=== PATIENT | female | born 1980 ===

== ENCOUNTER 2024-12-17 08:47 | Inpatient (IN) | payer MEDICARE, OTHER ==
[~2024-12-17] VITALS: Ht 165.1 cm; Wt 175.0 kg
[2024-12-17] MEDS ORDERED: CELEXA40 M9 PO (15:15)
[2024-12-17] MEDS ORDERED: CLOBETASOL EMOL15 G2 TOP (15:18)
[2024-12-17] MEDS ORDERED: HYDHCL25 PO (15:20)
[2024-12-17] MEDS ORDERED: IBUP800 PO (15:22)
[2024-12-17] MEDS ORDERED: TRAZ50 PO (15:25)
[2024-12-17] MEDS ORDERED: Polyethylene Glycol 3350 17 gm PO PRN (15:35)
[2024-12-17] MEDS ORDERED: Aluminum Hydroxide 320MG/5ML 473 ML PO PRN (15:35)
[2024-12-17] MEDS ORDERED: Ondansetron 4 MG SoluTab MM PRN (15:35)
[2024-12-17] MEDS ORDERED: DiphenhydrAMINE HCl 50 MG/ML 1ML Vial IM PRN (15:40)
[2024-12-17] MEDS ORDERED: Haloperidol Lactate Inj. 5 MG/ML Injection IM PRN (15:40)
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
[2024-12-17 20:52] VITALS: BP 114/74
[2024-12-17] MEDS ORDERED: Clobetasol Prop 0.05% Cream 15 gm TOP SCH (21:00)
--- NOTE | 2024-12-18 04:09 | NUR ---
SHIFT SUMMARY PT LAYING IN BED, AWAKE AT START OF SHIFT. SHE IS PLEASANT AND COOPERATIVE WITH CARE. SUPERFICIAL WOUNDS TO HER FOREHEAD, BRIDGE OF NOSE AND BILATERAL UPPER CHEEKS WITH NO DRAINAGE. PT DENIES ANY CURRENT SI, HI, THOUGHTS OF SELF HARM OR AVTH. SHE REPORTS HER ANXIETY IS 2/10. AT TIMES PT APPEARS CHILD-LIKE AND HER ATTITUDE IS INCONGRUENT TO HER REPORTED MOOD. SHE HAD EVENING SNACK AND PARTICIPATED IN COMMUNITY WRAP UP GROUP. SHE RECEIVED PRN MELATONIN, TRAZODONE AND HYDROXYZINE FOR MASS OF 1. SHE WENT BACK TO BED AFTER SNACK AND HAS REMAINED THERE THROUGHOUT THE NIGHT. Q15 MINUTE CHECKS TO CONTINUE PER PT SAFETY/UNIT PROTOCOL.
[2024-12-18 07:26] LABS: CHOL/HDL RATIO 3.5; Cholesterol 195 mg/dL (50-200); HDL Cholesterol 55 mg/dL (>39); LDL/HDL RATIO 2.2; Low Density Lipoprotein Chol 123 mg/dL (0-110); Triglycerides 87 mg/dL (30-160); Very Low Density Lipoprot Chol 17 mg/dL (6-32)
[2024-12-18 08:54] VITALS: BP 123/72
[2024-12-18] MEDS ORDERED: Multivitamins 1 Tab PO SCH (09:00)
--- NOTE | 2024-12-18 14:13 | NUR ---
PROVIDER CONSULT RECOMMENDED BY DR. PAT FOR THE ABRASIONS ON THE FORHEAD AND FACE OF THIS PATIENT TO DETERMINE IF FUNGAL/YEAST/PARASITIC. PATIENT HAD A COUPLE OF MEDICATIONS LISTED FOR DIFFERENT PURPOSES BUT ALL FOR THIS 'RASH'. OUR PHARMACY WAS CONSULTED ABOUT THE IVERMECTIN THAT WAS NEVER PICKED UP FROM HER OWN [facility] AND THEY STATED NOT INDICATED FOR THIS CONDITION. THIS IS THE REASON FOR THE PROVIDER CONSULT. DETERMINE HOW TO TREAT.
--- NOTE | 2024-12-18 17:10 | NUR ---
SHIFT SUMMARY: PT ALERT, ORIENTED AND COOPERATIVE WITH CARE. DENIED SI, HI AND AVH. PT PRESENT FOR MEALS AND PARTICIPATED IN GROUPS. SHE WAS MEDICATED WITH PRN FOR C/O HEADACHE. PT WAS ACTIVE IN THE UNIT MILIEU, SPENT TIME IN THE DAY ROOM WATCHING TV, COLORING AND TALKING WITH STAFF AND PEERS.
--- NOTE | 2024-12-19 04:35 | NUR ---
SHIFT SUMMARY: PATIENT WAS EATING DINNER IN THE DINING ROOM AT THE BEGINNING OF THE SHIFT. SHE THEN CAME OUT TO THE DAY ROOM, WHERE SHE WORKED ON A PUZZLE AND COLORED ON THE CANDLEMAKING LABORER WHILE INTERACTING PLEASANTLY WITH STAFF AND PEERS. SHE WAS ABLE TO RESPOND TO GOLF INSTRUCTOR QUESTIONS IN A LOGICAL AND LINEAR MANNER. SHE DENIED SUICIDAL IDEATION, THOUGHTS OF SELF HARMING AND A/V/T HALLUCINATIONS. SHE PARTICIPATED IN SNACK AND WRAP UP GROUP, AND WAS COMPLIANT WITH EVENING MEDICATION ADMINISTRATION. SHE TALKED ABOUT NOT TAKING A TRAZODONE THIS SHIFT, BUT THEN DECIDED THAT SHE WANTED TO "JUST IN CASE I CAN'T SLEEP". SHE WENT BACK TO THE DAY ROOM UNTIL ABOUT 2130. SHE THEN WENT TO HER ROOM AND WENT TO BED, WHERE SHE WAS NOTED TO BE RESTING QUIETLY WITH EYES CLOSED AND RESPIRATIONS CONFIRMED FOR THE REMAINDER OF THE SHIFT. CONTINUING TO MONITOR FOR SAFETY WITH Q15 MINUTE CHECKS.
[2024-12-19 08:30] VITALS: BP 124/93
--- NOTE | 2024-12-19 17:14 | NUR ---
SHIFT SUMMARY: PT ALERT, ORIENTED AND COOPERATIVE WITH CARE. DENIES SI, HI AND AVH. PT COMPLIANT WITH MEDICATIONS. EKG COMPLETED PER ORDERS, PT TOLERATED WELL. PT HAD C/O NIGHTMARES LAST NIGHT. SHE SPOKE WITH THE PROVIDER AND MEDICATION CHANGES NOTED. PT UPDATED ON CHANGES AND IS AGREEABLE. PT WAS PRESENT ON THE UNIT. SPENT TIME IN THE DAY ROOM WATCHING TV, PUTTING TOGETHER A PUZZLE, TALKING WITH PEERS AND STAFF. PT SHOWERED THIS AM.
--- NOTE | 2024-12-20 04:17 | NUR ---
SHIFT SUMMARY: PATIENT WAS IN THE DINING ROOM EATING DINNER AT THE BEGINNING OF THE SHIFT. SHE CAME OUT AND WENT TO THE DAY ROOM, WHERE SHE WORKED ON THE PUZZLE AND LAURA ON THE DOCTOR OF CHIROPRACTIC WITH MARKING PENS. SHE STATED THAT SHE HAD "A GOOD DAY" AND THAT SHE IS "LEARNING A LOT HERE". SHE STATED, "THE PEOPLE HERE ARE REALLY NICE". SHE WAS ABLE TO ANSWER ELECTRONICS PRODUCTION SUPERVISOR QUESTIONS IN A LOGICAL AND LINEAR MANNER. SHE STATED THAT SHE HAD "BAD DREAMS" LAST NIGHT DUE TO THE TRAZODONE, AND THAT SHE WON'T TAKE IT TONIGHT. IT HAS BEEN DISCONTINUED. SHE DENIED SUICIDAL IDEATION, THOUGHTS OF SELF HARMING AND A/V/T HALLUCINATIONS. SHE PARTICIPATED IN SNACK AND WRAP UP GROUP AT 2030. SHE WAS MEDICATION COMPLIANT AND WENT TO BED ABOUT 2130, WHERE SHE WAS NOTED TO BE RESTING QUIETLY WITH EYES CLOSED AND RESPIRATIONS CONFIRMED FOR THE REMAINDER OF THE SHIFT. SHE WAS UP X1 IN HER ROOM, STATING SHE'D AWAKENED FROM A BAD DREAM. SHE WENT RIGHT BACK TO RESTING. CONTINUING TO MONITOR FOR SAFETY WITH Q15 MINUTE CHECKS.
[2024-12-20 07:12] VITALS: BP 121/77
--- NOTE | 2024-12-20 17:35 | NUR ---
SHIFT SUMMARY PT AxOx4. PLEASANT AND COOPERATIVE WITH CARE. ASSUMED CARE OF THIS PATIENT FROM [place] AT APPROX 1100. AFTER MEETING WITH THIS PATIENT AND REVIEWING THE SHIFT ASSESSMENT OF PRIOR RN, I AGREE WITH HER FINDINGS AND DOCUMENTATION. PT HAS HAD AN UNEVENTFUL DAY. SHE HAS BEEN FOLLOWING HER TREATMENT PLAN INCLUDING TAKING MEDICATIONS PRESCRIBED, ATTENDING MILIEU GROUPS AND MINGLING WITH STAFF/PEERS APPROPRIATELY. SHE DENIED SI/HI AND AVTH AND DECLINED FURTHER CONCERNS THIS EVENING. PROVIDER PRESCRIBED MED CHANGES TO BE STARTED THIS EVENING TO ADDRESS PT'S REPORTED NIGHTMARES. PT AWARE AND AGREEABLE. SHE IS CURRENTLY SITTING IN THE GROUP ROOM, WATCHING TV WITH PEERS.
--- NOTE | 2024-12-20 17:48 | NUR ---
SHIFT SUMMARY ASSUMED PT CARE @1100. PT IS AA&O TO PERSON, PLACE, SITUATION, AND TIME. SHE IS PLEASANT AND COOPERATIVE WITH CARE. SPEECH AND EYE CONTACT APPROPRIATE. MOOD IS EUTHYMIC AFFECT IS CONGRUENT. SHE IS COMPLIANT WITH MEDICATIONS AND DENIES ANY ADVERSE SIDE EFFECTS. SHE DID REPORT NIGHTMARES AND INTERUPTED SLEEP. AWARE AND MINIPRESS ORDERED FOR TONIGHT. SHE DENIES SI, AVH. SHE HAS BEEN UP FOR MEALS, SHOWER AND IS INTERACTING WELL WITH PEERS. WILL CONTINUE POC
[2024-12-20 19:05] VITALS: BP 127/78
--- NOTE | 2024-12-20 22:37 | NUR ---
MASS SCORE: PATIENT UPSET AND BECOMING AGITATED WITH SELF DUE TO UNABLE TO SLEEP SECONDARY TO FEARS OF NIGHT TERRORS. MEDICATION EDUCATION GIVEN REGARDING NEW ORDER MINIPRESS. PATIENT REMAINED FEARFUL, MASS SCORE 8. GIVEN ZYPREXA AFTER CAREFUL EDUCATION REGARDING THE MEDICATION. WILL CONTINUE TO MONITOR FOR EFFECTIVENESS.
--- NOTE | 2024-12-21 04:07 | NUR ---
SHIFT SUMMARY: PATIENT WAS IN THE DAY ROOM AREA AT THE BEGINNING OF THE SHIFT, WORKING ON THE PUZZLE AND COLORING ON THE WALL MURAL. SHE WAS NOTED TO BE PLEASANT AND FRIENDLY, AND COULD BE HEARD GIGGLING. SHE STATED THAT SHE WAS "IN A GREAT MOOD" AND THAT SHE IS "JUST HAPPY TODAY". SHE HAS "HOPES THAT THE NEW MEDICATION WILL STOP MY NIGHTMARES". SHE IS STARTING MINIPRESS TONIGHT. SHE WAS ABLE TO ANSWER CUSTOMER COUNTER REPRESENTATIVE QUESTIONS IN A LOGICAL AND LINEAR MANNER. SHE DENIED SUICIDAL IDEATION, THOUGHTS OF SELF HARMING AND A/V/T HALLUCINATIONS. SHE PARTICIPATED IN SNACK AND WRAP UP GROUP AT 2030, AND WAS COMPLIANT WITH EVENING MEDICATIONS. SHE STAYED UP FOR A TIME AFTER SNACK, AND WENT TO BED ABOUT 2130. SHE WOKE UP A FEW HOURS LATER AND STATED THAT SHE WAS HAVING NIGHTMARES "I THINK" AND THAT SHE COULDN'T SLEEP SECONDARY TO NIGHTMARES. SHE WAS BECOMING ANXIOUS AND "MAD AT MYSELF". SHE WAS GIVEN ZYPREXA FOR MASS SCORE OF 8, WHICH WAS EFFECTIVE. SHE WAS GIVEN ADDITIONAL VISTARIL, WHICH WAS ALSO HELPFUL FOR HER. SHE DID WAKE UP X2 YELLING, BUT BOTH TIMES STATED THAT SHE "DIDN'T KNOW" IF SHE HAD A NIGHTMARE. SHE WANTS TO CONTINUE TO WORK WITH THE DR TO FIND AN ANSWER TO HER "NIGHTMARES". CONTINUING TO MONITOR FOR SAFETY WITH Q15 MINUTE CHECKS.
[2024-12-21 09:05] VITALS: BP 131/70
--- NOTE | 2024-12-21 17:35 | NUR ---
SHIFT SUMMARY PT A/O X4; PLEASANT AND COOPERATIVE WITH CARE. SHE DENIES SI, HI, AVTH. STILL REPORTS INCREASED NIGHT TERRORS AND WAS STARTED ON MINIPRESS LAST NIGHT. PT ALSO REPORTS HEADACHES AND UPSET STOMACH AND BELIEVES THE IRON IN THE MULTIVITAMIN MAY BE THE CULPRIT. TREATED PER EMR FOR HEADACHE WITH GOOD RELIEF. SHE ATTENDED ALL GROUPS, MEALS, AND INTERACTS WITH HER PEERS APPROPRIATELY.
[2024-12-21 20:16] VITALS: BP 140/83
--- NOTE | 2024-12-22 04:10 | NUR ---
SHIFT SUMMARY AT START OF SHIFT THE PT HAD JUST COMPLETED A VISIT WITH HER . SHE DENIES ANY SI, HI, THOUGHTS OF SELF HARM OR AVTH. SHE STATES SHE FEELS READY TO BE DISCHARGED. SHE IS AGREEABLE TO STAYING OVER NIGHT, BUT WOULD LIKE TO TALK TO DR. MOFFETT ABOUT DISCHARGING TODAY(12/22/24). SHE STATES THAT SHE IS LOOKING FORWARD TO USING THE COPING SKILLS SHE HAS LEARNED HERE. PT IS PLEASANT AND COOPERATIVE. SHE SPENT TIME COLORING IN GROUP ROOM, SHE HAD EVENING SNACK AND WAS COMPLAINT WITH MEDICATIONS. SHE DID NOT RECEIVE ANY PRN MEDICATIONS UNTIL THIS MORNING, WHEN SHE WAS FEELING RESTLESS AND RECEIVED PRN VISTARIL AT 0235. SHE HAS APPEARED TO BE SLEEPING, WITH RESPIRATIONS CONFIRMED DURING Q15 MINUTE CHECKS.
[2024-12-22 09:05] VITALS: BP 129/79
--- NOTE | 2024-12-22 11:15 | NUR ---
Mett Pt. in a consult room. Pt. is pleasnt and quickly displays evidence of trust and peace. Right away the Pt. opened up matetrs of benja and belief. Spiritual implication fo the Pts. life were being tested by life circumstances. With theraputic listening and pastoral encouragement the Pt. displayed evidence of acknowleging the limitations of her abiliy to respond to expectations, while also holding on to her deep benja. Prayed wwith the Pt. Pt. verbalized gratitude for the spiritual care visit.
[2024-12-22] MEDS ORDERED: ALEVAZOL56.7 G1 TOP (13:36)
[2024-12-22] MEDS ORDERED: BUSP10 PO (13:36)
[2024-12-22] MEDS ORDERED: PRAZ1 PO (13:37)
--- NOTE | 2024-12-22 14:27 | NUR ---
DISCHARGE PT A/O X4; PLEASANT AND COOPERATIVE WITH CARE. SHE DENIES SI, HI, AVTH. PT REPORTS FEELING MUCH BETTER AND APPEARS CHEERFUL. SHE REPORTS SLEEPING BETTER THAN SHE HAS IN A LONG TIME AND DENIES NIGHT TERRORS. FOLLOW UP APPOINTMENTS MADE WITH HER PCP, JIMENA LEYVA AND AT [facility] FOLLOW UP. MEDICATIONS FAXED TO [facility] IN [place]. DISCHARGE INSTRUCTIONS GONE OVER WITH PATIENT AND SHE EXHIBITS UNDERSTANDING. EDUCATION AND INFORMATION REGARDING CARE MANAGEMENT THROUGH SET DESIGNER PROVIDED TO PT WELL. IN PARKING LOT WAITING TO TAKE PATIENT HOME. BELONGINGS RETURNED TO PATIENT AND SHE LEFT UNIT AT 1435.
== END 2024-12-22 14:35 | disposition home or self-care (01) | DRG 885 ==
LOC: BHU 08:47
PROVIDERS: ADMIT Psychiatry & Neurology Psychiatry
DX: F33.2 Major depressive disorder, recurrent severe without psychotic features (principal); R45.851 Suicidal ideations; B35.8 Other dermatophytoses; F60.3 Borderline personality disorder; Z56.0 Unemployment, unspecified; Z88.8 Allergy status to other drugs, medicaments and biological substances; Z79.899 Other long term (current) drug therapy
CPT/HCPCS: 36415; 80061; 83036; 93005; 93010; A9270